=== PATIENT | male | born 1970 | race African-American/Black ===

== ENCOUNTER 2019-06-20 03:24 | Inpatient (IN) | payer OTHER ==
[2019-06-20] VITALS (28 sets, daily range): BP systolic 122–216; BP diastolic 69–147
[~2019-06-20] VITALS: Ht 172.7 cm; Wt 88.9 kg
--- NOTE | ~2019-06-20 | HC ---
[facility] [place] [address] CONSULTATION Name: HERNANDO BARNES Room #: 358-P [facility] IN ..#: [id number] Admission: 06/20/19 Attend Phys: Amaya Bolton Discharge: Date of : 70 Report #: [id number] THIS REPORT FOR: //name// CC: Amaya Arce REASON FOR CONSULTATION: Elevated blood pressure. REASON FOR PRESENTATION: Nausea, vomiting, abdominal pain. HISTORY OF PRESENT ILLNESS: A 49-year-old with what seems to be hypertension, noncompliance with his medication. He presented to the Emergency Room reporting that he has been having some issues with nausea, vomiting and abdominal pain for the last few days. He has history of hypertension for the last 14 years. He follows with Dr. Arce. He tells me that he was unable to tolerate lisinopril because of throat swelling and what he describes as angioedema. He was then switched to amlodipine and hydrochlorothiazide; however, he suffered from erectile dysfunction because of the hydrochlorothiazide. He is currently maintained on Viagra because of that. It does look like that there were some major issues with his inability to take medications and the patient's blood pressure on presentation was extremely elevated at 197/119. The patient was accordingly admitted for further evaluation and management. He had leukocytosis, elevated creatinine at 2.1 when he presented. I have no baseline on him except that he had a creatinine value of 1.4 back in 2015. MEDICATIONS: 1. Amlodipine. 2. Aspirin. 3. Hydrochlorothiazide. FAMILY HISTORY: His mom has hypertension. ALLERGIES: SHELLFISH. PAST MEDICAL HISTORY: 1. Hypertension. 2. Hyperlipidemia. REVIEW OF SYSTEMS: GENERAL: No fever or chills. CARDIOVASCULAR: No chest pain or palpitation. PULMONARY: No cough or hemoptysis. GASTROINTESTINAL: As per the history of present illness. GENITOURINARY: No frequency, no urgency. MUSCULOSKELETAL: No back pain, no muscle cramps, no morning stiffness. PHYSICAL EXAMINATION: [facility] [address] [place] [address] CONSULTATION Name: HERNANDO BARNES Room #: 358-P [facility] IN ..#: [id number] Admission: 06/20/19 Attend Phys: Amaya Ortega Hoang Discharge: Date of : 70 Report #: [id number] GENERAL: He is alert, oriented, in no apparent distress. VITAL SIGNS: Blood pressure is 173/93, temperature is 37, respiratory rate is 26, pulse rate is 111. HEAD AND NECK: No jugular venous distention. CHEST: Decreased air entry bilaterally. CARDIOVASCULAR: Regular with no rub detected. ABDOMEN: Soft, nontender with no bruit. LOWER EXTREMITIES: No edema. LABORATORY DATA: Laboratory values reviewed. Sodium is 138, potassium is 3.3, BUN is 28, creatinine is 1.9. ASSESSMENT, IMPRESSION AND PLAN: 1. Hypertensive urgency due to noncompliance with medications. 2. Hypokalemia. 3. Chronic kidney disease. I suspect that this is all due to noncompliance with medications; however, workup has been initiated. He has no evidence of renal artery stenosis. I do not think that this is pheochromocytoma. If this were to be a secondary hypertension, it will very likely be hyperaldosteronism. Currently, the patient is maintained on Aldactone. Guidelines treatment for hypertension in this gentleman would imply utilizing thiazide diuretics and angiotensin receptor michelle, Aldactone, amlodipine and/or beta michelle. By: 0818 [id number] Ina Gottlieb MD /nt
[~2019-06-20 03:24] MED LIST: ASPIRIN325 PO; DOXYCYCLINE 10100 M1 PO; HYDROCHLOROTHIA25 M1 PO; LIPITOR80 MG PO; LISINOPRIL40 MG PO; ZOFRAN ODT4 MG PO; ZPAK PO
[2019-06-20] MEDS ORDERED: AMLODIPINE BESY10 MG PO (04:01)
[2019-06-20 04:07] LABS: ABSOLUTE NEUTROPHILS 15.6 thou/uL (1.4-8.2); BASOPHILS 0.7 % (0.0-2.0); EOSINOPHILS 0.1 % (0.0-3.0); HEMATOCRIT 50.7 % (42.0-52.0); HEMOGLOBIN 16.6 gm/dL (14.0-18.0); LYMPHOCYTES 8.6 % (24.0-44.0); MCH 29.3 pg (26.0-34.0); MCHC 32.8 g/dL (28.0-37.0); MCV 89.5 fL (80.0-100.0); MONOCYTES 5.1 % (1.0-8.0); PLATELET COUNT 257 thou/uL (150-400); POLYS 85.5 % (36.0-66.0); RBC 5.67 mil/uL (4.50-6.00); RDW 12.4 % (10.5-14.5); WBC 18.2 thou/uL (4.0-11.0)
[2019-06-20 04:11] LABS: CALCIUM 10.8 mg/dL (8.5-10.1); CREATININE 2.1 mg/dL (0.7-1.3); POTASSIUM 3.2 mmol/L (3.5-5.1)
[2019-06-20 04:17] LABS: ALBUMIN 4.8 g/dL (3.4-5.0); TOTAL BILIRUBIN 0.6 mg/dL (<0.1-1.0); TOTAL PROTEIN 10.1 g/dL (6.4-8.2)
[2019-06-20 05:35] LABS: LARGE PLATELETS OCCASIONAL
--- NOTE | 2019-06-20 08:12 | NUR ---
chart review. pt up in bed with spouse at bedside. intro to cm, dcp and transition of care. pt is a x 3 and able to make his needs know. pt reported 10 stairs inside home. independent. no dme, works outside of the home. primary care dr german. no anticipated needs. will cont following as needed for dc needs.
--- NOTE | 2019-06-20 19:16 | NUR ---
PATIENT STILL HAVING HIGH BP. EDUCATED ON MEDS AND SIDE EFFECTS. HE DID NOD UNDERSTANDING. HE IS ALERT ORIENTED X3. ANXIOUS AT TIMES. NOTED TO BE HAVING DIAPHORESIS AND N/V STILL PERSISTS FROM LAST NIGHT. COMPAZINE ADMINISTERED AND IT WAS EFFECTIVE. WILL CONT WITH PLAN OF CARE.
[2019-06-21] VITALS (40 sets, daily range): BP systolic 123–203; BP diastolic 67–122
[2019-06-21 05:20] LABS: HEMATOCRIT 44.1 % (42.0-52.0); MCH 29.3 pg (26.0-34.0); MCHC 32.7 g/dL (28.0-37.0); MCV 89.4 fL (80.0-100.0); RBC 4.93 mil/uL (4.50-6.00); RDW 12.8 % (10.5-14.5); WBC 16.4 thou/uL (4.0-11.0)
[2019-06-21 05:34] LABS: CALCIUM 9.8 mg/dL (8.5-10.1); CREATININE 1.9 mg/dL (0.7-1.3); MAGNESIUM 2.1 mg/dL (1.8-2.4); POTASSIUM 3.3 mmol/L (3.5-5.1)
[2019-06-21 05:46] LABS: HEMOGLOBIN 14.4 gm/dL (14.0-18.0)
--- NOTE | 2019-06-21 10:05 | 2DMMODE ---
[facility] [address] [place] [address] 2 D/M-MODE ECHOCARDIOGRAM Name: HERNANDO BARNES Room #: 358-P ADM IN .R.#: [id number] Admission: 06/20/19 Attend Phys: Amaya Alicea Discharge: Date of : 70 Report #: [id number] THIS REPORT FOR: //name// APPROVED REPORT Study performed: 06/21/2019 08:26:07 EXAM: Comprehensive 2D, Doppler, and color-flow Echocardiogram Patient Location: Bedside Room #: [facility] Status: routine BSA: 2.03 HR: 118 bpm BP: 144/83 mmHg Rhythm: Tachycardia Other Information Study Quality: Good Indications HTN urgency. Hx: HTN, HLP. 2D Dimensions RVDd: 34.29 mm IVSd: 15.00 (7-11mm) LVOT Diam: 23.71 (18-24mm) LVDd: 42.13 mm PWd: 15.00 (7-11mm) Ascending Ao: 36.90 (22-36mm) LVDs: 26.91 (25-40mm) Aortic Root: 39.69 mm Volumes Left Atrial Volume (Systole) Single Plane 4CH: 32.73 mL Single Plane 2CH: 34.29 mL LA ESV Index: 19.00 mL/m2 Aortic Valve AoV Peak Wilton.: 2.39 m/s AO Peak Gr.: 22.92 mmHg Mitral Valve E/A Ratio: 0.5 MV Decel. Time: 207.54 ms MV E Max Wilton.: 0.77 m/s MV A Wilton.: 1.51 m/s [facility] [address] [place] [address] 2 D/M-MODE ECHOCARDIOGRAM Name: HERNANDO BARNES Room #: 358-P [facility]#: [id number] Admission: 06/20/19 Attend Phys: Amaya Alicea Discharge: Date of : 70 Report #: [id number] MV PHT: 60.19 ms Pulmonary Valve PV Peak Wilton.: 1.99 m/s PV Peak Gr.: 15.81 mmHg Tricuspid Valve TR Peak Wilton.: 2.62 m/s RAP Estimate: 5.00 mmHg TR Peak Gr.: 27.43 mmHg PA Pressure: 32.00 mmHg Left Ventricle The left ventricle is normal size. There is normal LV segmental wall motion. Moderate concentric left ventricular hypertrophy. Left ventricular systolic function is hyperdynamic. LVEF is >70%. Mild diastolic dysfunction is present (impaired relaxation pattern). Right Ventricle The right ventricle is normal size. The right ventricular systolic function is normal. Atria The left atrium size is normal. The right atrium size is normal. Aortic Valve The aortic valve is normal in structure. No aortic regurgitation is present. There is no aortic valvular stenosis. Mitral Valve The mitral valve is normal in structure. There is no mitral valve regurgitation noted. No evidence of mitral valve stenosis. Tricuspid Valve The tricuspid valve is normal in structure. Trace tricuspid regurgitation. Estimated PAP is 30-35mmHg. Pulmonic Valve The pulmonary valve is normal in structure. Great Vessels Aortic root is mildly dilated at 4.1cm. The ascending aorta is normal in size. IVC is normal in size and collapses >50% with inspiration. Pericardium [facility] [place] [address] [place] [address] 2 D/M-MODE ECHOCARDIOGRAM Name: HERNANDO BARNES Room #: 358-P [facility] IN .R.#: [id number] Admission: 06/20/19 Attend Phys: Amaya Alicea Discharge: Date of : 70 Report #: [id number] There is no pericardial effusion. <Conclusion> The left ventricle is normal size. LVEF is >70%. The aortic valve is normal in structure. The mitral valve is normal in structure. The tricuspid valve is normal in structure. Trace tricuspid regurgitation. Estimated PAP is 30-35mmHg. There is no pericardial effusion. <ELECTRONICALLY SIGNED> By: Rob Alamo MD 06/21/19 1004 1004 1004 Rob Alamo MD /INF
[2019-06-21 14:33] LABS: AMP/METHAMP Negative (Negative); BARBITURATES Negative (Negative); BENZODIAZEPINES Negative (Negative); COCAINE Negative (Negative); METHADONE Negative (Negative); OPIATES Negative (Negative); PCP Negative (Negative)
--- NOTE | 2019-06-21 15:01 | EKG ---
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1970 Requested By: Hamzah Sawyer Order Number: [id number] MD: Sonny Levine Measurements Intervals [place] Rate: 133 P: 73 MA: 150 QRS: -33 QRSD: 92 T: 83 QT: 294 QTc: 438 Interpretive Statements Sinus tachycardia LAE, consider biatrial enlargement RSR' in V1 or V2, right VCD or RVH LVH with secondary repolarization abnormality Inferior infarct, old Artifact in lead(s) III,aVF,V6 and baseline wander in lead(s) II,V6 No previous ECG available for comparison Electronically Signed On 06-21-2019 15:01:09 RECREATIONAL AIDE by Sonny Levine [email or web address] <ELECTRONICALLY SIGNED> By: Sonny Levine MD 06/21/19 1501 [id number] Sonny Levine MD /EPI
--- NOTE | 2019-06-21 15:05 | EKG ---
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 : 1970 Requested By: Bonita Birmingham Order Number: [id number] MD: Sonny Levine Measurements Intervals [place] Rate: 117 P: 79 [place]: 143 QRS: -32 QRSD: 106 T: 143 QT: 324 QTc: 452 Interpretive Statements Sinus tachycardia LAE, consider biatrial enlargement RSR' in V1 or V2, right VCD or RVH LVH with secondary repolarization abnormality Probable inferior infarct, recent Baseline wander in lead(s) V2,V4 No previous ECG available for comparison Electronically Signed On 06-21-2019 15:04:58 RECREATION ESTABLISHMENT MANAGER by Sonny Levine [email or web address] <ELECTRONICALLY SIGNED> By: Sonny Levine MD 06/21/19 1504 0851 0851 Sonny Levine MD /EPI
--- NOTE | 2019-06-21 19:45 | NUR ---
PATIENT ALERT ORIENTED X4. DOES NOT SEEM TO BE IN PAIN BUT NAUSEA HAS PERSISTED THROUGH THE DAY. HE HAS BEEN MEDICATED ADEQUATELY. NO VOMITING NOTED TODAY HOWEVER. WILL CONT WITH P[CAREN OF CARE.
--- NOTE | 2019-06-21 21:30 | NUR ---
Received pt. on cardene gtt. at 12.5 mg/hr. BP remains elevated. Day RN gave prn hydralazine and also gave nausea med per pt. request. New IV started on right AC for cardene gtt then gtt. titrated up to 15 mg/hr. Pt. very restless and fidgety. Encouraged to relax. HR up to 130's then 160's , regular. Pt. now c/o heart fluttering and stated he does not feel good. He's requested for metoprolol IV which he stated he had the day before. Explained to pt. that doctor needs to be called for order. Pt. got irritated stating that he does not have a minute. MOTIVATIONAL SPEAKER activated. DEPARTMENT CHAIR notified. Dr. Alamo also notified who ordered po toprol. informed that pt. had been refusing po med due to nausea. Nursing wheel shop supervisor called him and order obtained. Cardene gtt. dc'd. Cardizem gtt. started then pt. transferred to 2N per dietetic aide order. with pt. Transferred to 2N with all his belongings.
[2019-06-22] VITALS (7 sets, daily range): BP systolic 125–184; BP diastolic 77–125
--- NOTE | 2019-06-22 01:26 | NUR ---
SENIOR CONSTRUCTION MANAGER called at 2005 for c/o chest discomfort and tachycardia. See SENIOR CONSTRUCTION MANAGER flowsheet.
[2019-06-22 05:09] LABS: ALBUMIN 4.3 g/dL (3.4-5.0); CALCIUM 9.8 mg/dL (8.5-10.1); CREATININE 1.6 mg/dL (0.7-1.3); PHOSPHORUS 4.5 mg/dL (2.5-4.9); POTASSIUM 3.4 mmol/L (3.5-5.1)
--- NOTE | 2019-06-22 08:20 | NUR ---
ASSUME CARE 2300. PATIENT TRANSFERRED FROM [facility] DUE TO INCREASED HR. HR WAS SUSTAINING IN 140s AND 150s. BP RUNS HIGH WELL. PATIENT ALSO CONTINUES TO COMPLAIN OF NAUSEA BUT NO VOMITING AND DIARRHEA NOTED. ON CARDIZEM DRIP TO TITRATE HR < 100. ASSESSMENT CHARTED. PROGRESSING WELL WITH POC. WILL CONTINUE TO MONITOR
[2019-06-22 11:38] LABS: URINE BILIRUBIN NEGATIVE (Negative); URINE BLOOD 1+ (Negative); URINE CLARITY CLEAR; URINE COLOR YELLOW; URINE GLUCOSE-RANDOM* TRACE (Negative); URINE KETONES NEGATIVE (Negative); URINE LEUKOCYTES NEGATIVE (Negative); URINE NITRITE NEGATIVE (Negative); URINE PROTEIN (DIPSTICK) 2+ (Negative); URINE SPECIFIC GRAVITY >= 1.030 (1.005-1.035)
[2019-06-22 11:51] LABS: BACTERIA 1-9 Few /HPF (None Seen); CASTS None Seen /LPF (None Seen); CRYSTALS None Seen /LPF (None Seen); SQUAMOUS None Seen /LPF (0-3); URINE RBC 0-2 Rare /HPF (0-2); URINE WBC None Seen /HPF (0-5)
[2019-06-22 12:04] LABS: URINE CREATININE-RANDOM* 132.7 mg/dL; URINE PROTEIN-RANDOM* 191.4 mg/dL (<11.9)
--- NOTE | 2019-06-22 18:42 | NUR ---
ASSUMED CARE OF PATIENT AT 0700. ASSESSMENTS COMPLETED. PATIENT ON CARDIZEM DRIP WITH HR IN THE 120-130'S AT THE BEGINNING OF MY SHIFT. CARDIZEM TITRATED UP WITH LITTLE TO NO RELIEF. AM MEDS GIVEN AND PATIENT TITRATED OFF CARDIZEM. PATIENT'S IS AT THE BEDSIDE. PATIENT CONTINUES TO COMPLAIN OF NAUSEA THROUGHOUT THE DAY AND TREATED WITH ZOFRAN/COMPAZINE. NO VOMITING OR DIARRHEA DURING SHIFT. PATIENT DID TAKE A SHOWER AND NO COMPLAINTS OF DIZZINESS. NO CHEST PAIN NOTED. PATIENT ABLE TO TAKE PO MEDS AND EAT ALL MEALS WITHOUT ANY DIFFICULTY. AT END OF SHIFT, PATIENT HR IN THE 70S.
[2019-06-23 04:45] VITALS: BP 136/89
[2019-06-23 04:54] LABS: ALBUMIN 3.6 g/dL (3.4-5.0); CALCIUM 9.3 mg/dL (8.5-10.1); CREATININE 2.1 mg/dL (0.7-1.3); PHOSPHORUS 4.5 mg/dL (2.5-4.9); POTASSIUM 3.9 mmol/L (3.5-5.1)
--- NOTE | 2019-06-23 06:54 | NUR ---
ASSUME CARE 1900. PT/VITALS STABLE. DENIES PAIN. STEADY ON FEET. TOLERATES ACTIVITY WELL. PROGRESSINGWELL WITH POC. NAUSEA SUBSIDING AND BP STABILIZING. PROGRESSING WELL WITH POC. SR ON MONITOR WITH HR CONTROLLED. WILL CONTINUE TO MONITOR AND FOLLOW WITH POC
[2019-06-23 08:30] VITALS: BP 144/93
[2019-06-23 12:00] VITALS: BP 133/74
[2019-06-23] MEDS ORDERED: BYSTOLIC10 MG PO (13:01)
[2019-06-23] MEDS ORDERED: COZAAR 50 MG TA50 M1 PO (13:01)
[2019-06-23] MEDS ORDERED: NIFEDIPINE ER30 M1 PO (13:01)
[2019-06-23 15:19] VITALS: BP 133/74
--- NOTE | 2019-06-23 20:15 | NUR ---
ASSUMED CARE OF PATIENT AT 0700. ASSESSMENT COMPLETED. TELE STRIPS PRINTED AND PLACED IN THE CHART. PATIENT CONTINUED TO HAVE NAUSEA UNTIL LUNCH AND NO LONGER REQUESTED MEDS. PATIENT HR AND BP WNL. DENIES ANY CHEST PAIN, DIZZINESS OR SHORTNESS OF AIR. PATIENT IV INFILTRATED ON RT AC AND NEW ONE PLACED IN LT FA BY IV TEAM. PATIENT AMBULATED WITHOUT NEED FOR USE OF WALKER. IV AND TELE REMOVED. DISCHARGE PAPERWORK SIGNED. PATIENT GIVEN WORK NOTE, APPROVED BY DR. MORFIN, COPY IN CHART. PATIENT STATES THAT HE FEELS BETTER THAN HE DID WHEN HE ARRIVED. PATIENT TAKEN VIA WHEELCHAIR TO THE MAIN ENTRANCE AND DRIVEN HOME BY HIS .
[2019-06-24 17:11] LABS: METANEPHRINE-PL 80 pg/mL (0-62); NORMETANEPHRINE - PL 276 pg/mL (0-145)
--- NOTE | 2019-06-25 09:43 | EKG ---
[address] [address] ELECTROCARDIOGRAM REPORT Name: HERNANDO BARNES Room #: 210-[facility] IN .#: [id number] Admission: 06/20/19 Attend Phys: Amaya Bolton Discharge: 06/23/19 Date of : 70 Report #: [id number] THIS REPORT FOR: //name// [facility] Test Date: 2019-06-21 Test Time: 20:32:25 Pat Name: HERNANDO BARNES Department: Room: 210 Gender: M Medical Orderly: . : 1970 Requested By: Amaya Bolton Order Number: [id number] MD: Volodymyr Bagley Measurements Intervals [place] Rate: 149 P: 75 [place]: 122 QRS: -13 QRSD: 88 T: 93 QT: 279 QTc: 439 Interpretive Statements Sinus tachycardia Right ventricular conduction delay Inferior infarct, age indeterminate Compared to ECG 06/21/2019 08:51:43 No significant change was found Electronically Signed On 06-25-2019 9:42:36 STRIP ROLLER by Volodymyr Bagley [email or web address] <ELECTRONICALLY SIGNED> By: Volodymyr Bagley MD, FAC 06/25/19 0942 31 31 Volodymyr Bagley MD, [facility] /EPI
== END 2019-06-23 16:00 | disposition home or self-care (01) | DRG 304 ==
LOC: ER 03:24 → EROBS 05:51 → 3W 05:51 → 2N 06-21 22:55
PROVIDERS: Emergency Medicine; Hospitalist; Nurse Practitioner Acute Care; ADMIT Hospitalist
DX: I16.0 Hypertensive urgency (principal); N17.1 Acute kidney failure with acute cortical necrosis; K52.9 Noninfective gastroenteritis and colitis, unspecified; E78.5 Hyperlipidemia, unspecified; E87.6 Hypokalemia; N18.9 Chronic kidney disease, unspecified; R00.0 Tachycardia, unspecified; F12.90 Cannabis use, unspecified, uncomplicated; I12.9 Hypertensive chronic kidney disease with stage 1 through stage 4 chronic kidney disease, or unspecified chronic kidney disease; F17.210 Nicotine dependence, cigarettes, uncomplicated; Z91.14 Patient's other noncompliance with medication regimen; Z91.013 Allergy to seafood; Z82.49 Family history of ischemic heart disease and other diseases of the circulatory system
CPT/HCPCS: 10081; 10879

== ENCOUNTER → 2019-07-02 | Outpatient (CLI) | payer OTHER ==
[~2019-07-02] MED LIST changes: +AMLODIPINE BESY10 MG PO; +BYSTOLIC10 MG PO; +COZAAR 50 MG TA50 M1 PO; +NIFEDIPINE ER30 M1 PO
== END ==
LOC: MRI 13:07
DX: R90.82 White matter disease, unspecified (principal); I10 Essential (primary) hypertension

== ENCOUNTER → 2020-09-01 | Outpatient (CLI) | payer OTHER | LOC: SJCVCIMAG 10:30 → SJCVC 15:08 | PROVIDERS: ATTEND Internal Medicine | DX: I11.9 Hypertensive heart disease without heart failure (principal); E78.5 Hyperlipidemia, unspecified ==